=== PATIENT | male | born 1980 | race African-American/Black ===

== ENCOUNTER 2021-06-19 08:55 | Inpatient (IN) | payer OTHER ==
[2021-06-19 12:30] VITALS: BMI 35.0
[2021-06-19] MEDS ORDERED: MENTHOL/PHENOL 1 EACH UD MM PRN (12:35)
[2021-06-19] MEDS ORDERED: METHOCARBAMOL 500 MG TABLET PO PRN (12:35)
[2021-06-19] MEDS ORDERED: ACETAMINOPHEN 325 MG TABLET (FP) PO PRN ×2 (12:35)
[2021-06-19] MEDS ORDERED: MAG HYDROX/AL HYDROX/SIMETH 30 ML UNIT-DOSE CUP PO PRN (12:35)
[2021-06-19] MEDS ORDERED: MAGNESIUM CITRATE 300 ML BOTTLE PO PRN (12:35)
[2021-06-19] MEDS ORDERED: MAGNESIUM HYDROX 2400MG/30ML ORAL SUSPENSION 30 ML CUP PO PRN (12:35)
[2021-06-19] MEDS ORDERED: IBUPROFEN 400 MG TABLET (FP) PO PRN (12:35)
[2021-06-19] MEDS ORDERED: ONDANSETRON *ODT* 4 MG TABLET SL PRN (12:35)
[2021-06-19] MEDS ORDERED: BISMUTH SUBSALICYLATE 262 MG/15 ML BTL PO PRN (12:35)
[2021-06-19] MEDS ORDERED: NICOTINE POLACRILEX 4 MG GUM BUC PRN (12:35)
[2021-06-19] MEDS ORDERED: NICOTINE 10 MG CARTRIDGE (INHALER) IH PRN (12:35)
[2021-06-19] MEDS ORDERED: PRENATAL VITAMINS W/ FOLIC ACID TABLET (FP) PO SCH (12:45)
[2021-06-19] MEDS ORDERED: ALBUTEROL SO4 HFA INHALER IH PRN ×2 (13:06→17:24)
[2021-06-19] MEDS: hydrOXYzine PAMOATE 25 MG CAPSULE (FP) PO PRN (17:21)
[2021-06-19] MEDS ORDERED: THIAMINE HCL 100 MG TABLET (FP) PO SCH (22:00)
[2021-06-19] MEDS ORDERED: MELATONIN 5 MG TABLETS PO SCH (22:00)
[2021-06-19] MEDS ORDERED: methaDONE HCL 10 MG TABLET (FOR DETOX USE ONLY) PO ONE (22:44)
[2021-06-19] MEDS ORDERED: cloNIDine HCL 0.1 MG TABLET PO PRN (22:44)
[2021-06-19] MEDS: P-EPHED 60MG/TRIPROLIDI 2.5MG TABLET PO PRN (22:57)
[2021-06-20] MEDS: hydrOXYzine PAMOATE 25 MG CAPSULE (FP) PO PRN (02:45)
[2021-06-20 05:59] VITALS: BP 136/67; PULSE 65; TEMP 97.8
[2021-06-20] MEDS: P-EPHED 60MG/TRIPROLIDI 2.5MG TABLET PO PRN (07:27)
[2021-06-21] MEDS ORDERED: methaDONE HCL 10 MG TABLET (FOR DETOX USE ONLY) PO ONE (10:00)
[2021-06-23] MEDS ORDERED: methaDONE HCL 10 MG TABLET (FOR DETOX USE ONLY) PO ONE (10:00)
== END 2021-06-20 08:44 | disposition left against medical advice (07) | DRG 770 ==
LOC: YASAS 08:55 → UNDOADMIN 12:52 → Y6N 12:52
PROVIDERS: ADMIT Allergy & Immunology; ATTEND Allergy & Immunology
PROC: HZ2ZZZZ Detoxification Services for Substance Abuse Treatment (ICD-10-PCS; principal; 2021-06-19)
DX: F11.23 Opioid dependence with withdrawal (principal); F17.210 Nicotine dependence, cigarettes, uncomplicated; G47.00 Insomnia, unspecified; J45.909 Unspecified asthma, uncomplicated; E66.9 Obesity, unspecified; Z68.35 Body mass index [BMI] 35.0-35.9, adult; Z91.013 Allergy to seafood
CPT/HCPCS: 93005; 93010; C9803; J0735; U0003; U0005

== ENCOUNTER 2023-05-31 12:16 | Inpatient (IN) | payer OTHER ==
[2023-05-31 13:27] VITALS: BMI 29.8
[2023-05-31] MEDS ORDERED: BENZOCAINE/MENTHOL (CHLORASEPTIC ) LOZENGE MM PRN (16:38)
[2023-05-31] MEDS ORDERED: MAGNESIUM HYDROX 2400MG/30ML ORAL SUSPENSION 30 ML CUP PO PRN (16:38)
[2023-05-31] MEDS ORDERED: guaiFENesin 600 MG TABLET.ER (FP) PO PRN (16:38)
[2023-05-31] MEDS ORDERED: hydrOXYzine PAMOATE 25 MG CAPSULE (FP) PO PRN (16:38)
[2023-05-31] MEDS ORDERED: POLYETHYLENE GLYCOL (HEALTHYLAX) 3350 17 GM PACKET PO PRN (16:38)
[2023-05-31] MEDS ORDERED: BISMUTH SUBSALICYLATE 524 MG/30 ML PO PRN (16:38)
[2023-05-31] MEDS ORDERED: NICOTINE POLACRILEX 2 MG GUM BUC PRN (16:38)
[2023-05-31] MEDS ORDERED: BENZONATATE 200 MG CAPSULE PO PRN (16:38)
[2023-05-31] MEDS ORDERED: ONDANSETRON *ODT* 4 MG TABLET SL PRN (16:38)
[2023-05-31] MEDS ORDERED: IBUPROFEN 400 MG TABLET (FP) PO PRN (16:38)
[2023-05-31] MEDS ORDERED: IBUPROFEN 600 MG TABLET (FP) PO PRN (16:38)
[2023-05-31] MEDS ORDERED: ACETAMINOPHEN 325 MG TABLET (FP) PO PRN (16:38)
[2023-05-31] MEDS ORDERED: LOPERAMIDE HCL 2 MG CAPSULE PO PRN (16:38)
[2023-05-31] MEDS ORDERED: NALOXONE HCL 0.4 MG/ML VIAL IM PRN (16:38)
[2023-05-31] MEDS ORDERED: NALOXONE HCL (KLOXXADO) 8 MG SPRAY NS PRN (16:38)
[2023-05-31] MEDS ORDERED: P-EPHED 60MG/TRIPROLIDI 2.5MG TABLET PO PRN (16:38)
[2023-05-31] MEDS ORDERED: DICYCLOMINE HCL 10 MG CAPSULE PO PRN (16:38)
[2023-05-31] MEDS ORDERED: MAG HYDROX/AL HYDROX/SIMETH 30 ML UNIT-DOSE CUP PO PRN (16:38)
[2023-05-31] MEDS ORDERED: guaiFENesin 200 MG/10 ML 10 ML UNIT-DOSE CUPS PO PRN (16:41)
[2023-05-31] MEDS: METHOCARBAMOL 500 MG TABLET PO PRN (22:08)
[2023-05-31] MEDS: MELATONIN 5 MG TABLETS PO SCH (22:08)
[2023-05-31] MEDS: THIAMINE HCL 100 MG TABLET (FP) PO SCH (23:56)
[2023-06-01] MEDS: ALBUTEROL SO4 HFA INHALER IH PRN (01:43)
[2023-06-01] MEDS: METHOCARBAMOL 500 MG TABLET PO PRN (05:36)
[2023-06-01] MEDS ORDERED: cloNIDine HCL 0.1 MG TABLET PO PRN (06:24)
[2023-06-01] MEDS ORDERED: methaDONE HCL 10 MG TABLET (FOR DETOX USE ONLY) PO ONE ×2 (06:24→10:00)
[2023-06-01 10:09] LABS: HEMATOCRIT 45.3 % (35.4-49); HEMOGLOBIN 15.3 GM/dL (11.7-16.9); MCH 33.7 pg (25.7-33.7); MCHC 33.8 g/dl (32.0-35.9); MEAN CELL VOLUME 99.6 fl (80-96); MEAN PLT VOLUME 8.7 fl (7.5-11.1); PLATELET COUNT 258 10^3/uL (134-434); RBC 4.55 M/mm3 (4.00-5.60); RDW 13.5 % (11.9-15.9); WHITE BLOOD COUNT 5.8 K/mm3 (4.0-10.0)
[2023-06-01] MEDS: PRENATAL VITAMINS W/ FOLIC ACID TABLET (FP) PO SCH (10:12)
[2023-06-01 10:33] LABS: POTASSIUM 4.6 mmol/L (3.5-5.1)
[2023-06-01 10:41] LABS: ALBUMIN 3.5 g/dl (3.4-5.0); BLOOD UREA NITROGEN 10.2 mg/dL (7-18); CALCIUM 8.8 mg/dL (8.5-10.1)
[2023-06-01 10:43] LABS: BILIRUBIN,TOTAL 0.3 mg/dL (0.2-1); CREATININE 0.9 mg/dL (0.55-1.3); TOT PROT 7.3 g/dl (6.4-8.2)
[2023-06-01] MEDS: amLODIPine BESYLATE 10 MG TABLET (FP) PO SCH (14:03)
[2023-06-01] MEDS: diazePAM 5 MG TABLET PO PRN ×2 (17:03→22:09)
[2023-06-01 18:10] VITALS: RESP 18
[2023-06-01] MEDS: THIAMINE HCL 100 MG TABLET (FP) PO SCH (22:08)
[2023-06-01] MEDS: MELATONIN 5 MG TABLETS PO SCH (22:08)
[2023-06-02 09:23] VITALS: BP 142/76; PULSE 76; TEMP 98
[2023-06-02] MEDS: PRENATAL VITAMINS W/ FOLIC ACID TABLET (FP) PO SCH (10:10)
[2023-06-02] MEDS: amLODIPine BESYLATE 10 MG TABLET (FP) PO SCH (10:10)
[2023-06-02] MEDS: ALBUTEROL SO4 HFA INHALER IH PRN (10:12)
[2023-06-02] MEDS ORDERED: diazePAM 5 MG TABLET PO PRN (11:18)
[2023-06-03] MEDS ORDERED: methaDONE HCL 10 MG TABLET (FOR DETOX USE ONLY) PO ONE (10:00)
[2023-06-05] MEDS ORDERED: methaDONE HCL 10 MG TABLET (FOR DETOX USE ONLY) PO ONE (10:00)
== END 2023-06-02 12:12 | disposition left against medical advice (07) | DRG 770 ==
LOC: YASAS 12:16 → Y6N 17:57
PROVIDERS: ADMIT Allergy & Immunology; ATTEND Allergy & Immunology
PROC: HZ2ZZZZ Detoxification Services for Substance Abuse Treatment (ICD-10-PCS; principal; 2023-05-31)
DX: F11.23 Opioid dependence with withdrawal (principal); F17.210 Nicotine dependence, cigarettes, uncomplicated; I10 Essential (primary) hypertension; J45.20 Mild intermittent asthma, uncomplicated; Z28.310 Unvaccinated for COVID-19; Z28.9 Immunization not carried out for unspecified reason
CPT/HCPCS: 36415; 80053; 85027; 86780; 87635; 93005; 93010

== ENCOUNTER 2023-09-17 22:07 | Inpatient (IN) | payer OTHER ==
[2023-09-18] MEDS ORDERED: NALOXONE HCL (KLOXXADO) 8 MG SPRAY NS PRN (03:24)
[2023-09-18] MEDS ORDERED: NALOXONE HCL 0.4 MG/ML VIAL IM PRN (03:24)
[2023-09-18] MEDS ORDERED: BENZOCAINE/MENTHOL (CHLORASEPTIC ) LOZENGE MM PRN (03:24)
[2023-09-18] MEDS ORDERED: DICYCLOMINE HCL 10 MG CAPSULE PO PRN (03:24)
[2023-09-18] MEDS ORDERED: MAGNESIUM HYDROX 2400MG/30ML ORAL SUSPENSION 30 ML CUP PO PRN (03:24)
[2023-09-18] MEDS ORDERED: guaiFENesin 600 MG TABLET.ER (FP) PO PRN (03:24)
[2023-09-18] MEDS ORDERED: LOPERAMIDE HCL 2 MG CAPSULE PO PRN (03:24)
[2023-09-18] MEDS ORDERED: ACETAMINOPHEN 325 MG TABLET (FP) PO PRN (03:24)
[2023-09-18] MEDS ORDERED: MAG HYDROX/AL HYDROX/SIMETH 30 ML UNIT-DOSE CUP PO PRN (03:24)
[2023-09-18] MEDS ORDERED: BENZONATATE 200 MG CAPSULE PO PRN (03:24)
[2023-09-18] MEDS ORDERED: IBUPROFEN 400 MG TABLET (FP) PO PRN (03:24)
[2023-09-18] MEDS ORDERED: ONDANSETRON *ODT* 4 MG TABLET SL PRN (03:24)
[2023-09-18] MEDS ORDERED: POLYETHYLENE GLYCOL (HEALTHYLAX) 3350 17 GM PACKET PO PRN (03:24)
[2023-09-18] MEDS ORDERED: BISMUTH SUBSALICYLATE 524 MG/30 ML PO PRN (03:24)
[2023-09-18] MEDS ORDERED: IBUPROFEN 600 MG TABLET (FP) PO PRN (03:24)
[2023-09-18 03:52] VITALS: BMI 25.8
[2023-09-18] MEDS: PRENATAL VITAMINS W/ FOLIC ACID TABLET (FP) PO SCH (09:17)
[2023-09-18] MEDS ORDERED: methaDONE HCL 10 MG TABLET (FOR DETOX USE ONLY) PO ONE (11:15)
[2023-09-18] MEDS: ALBUTEROL SO4 HFA INHALER IH PRN ×2 (13:31→22:17)
[2023-09-18] MEDS: amLODIPine BESYLATE 10 MG TABLET (FP) PO SCH (13:59)
[2023-09-18] MEDS: THIAMINE HCL 100 MG TABLET (FP) PO SCH (22:17)
[2023-09-18] MEDS: MELATONIN 5 MG TABLETS PO SCH (22:17)
[2023-09-19] MEDS: ALBUTEROL SO4 HFA INHALER IH PRN ×3 (05:24→22:52)
[2023-09-19] MEDS: amLODIPine BESYLATE 10 MG TABLET (FP) PO SCH (09:47)
[2023-09-19] MEDS: PRENATAL VITAMINS W/ FOLIC ACID TABLET (FP) PO SCH (09:47)
[2023-09-19] MEDS: METHOCARBAMOL 500 MG TABLET PO PRN ×2 (09:47→22:52)
[2023-09-19] MEDS: cloNIDine HCL 0.1 MG TABLET PO PRN (17:16)
[2023-09-19 18:01] LABS: HEMOGLOBIN 15.8 GM/dL (11.7-16.9); MCH 34.1 pg (25.7-33.7); MCHC 33.6 g/dl (32.0-35.9); MEAN CELL VOLUME 101.4 fl (80-96); PLATELET COUNT 250 10^3/uL (134-434); RBC 4.64 M/mm3 (4.00-5.60); RDW 13.3 % (11.9-15.9)
[2023-09-19 18:05] LABS: CHLORIDE 101 mmol/L (98-107); SODIUM 137 mmol/L (136-145)
[2023-09-19 18:11] LABS: CALCIUM 9.2 mg/dL (8.5-10.1)
[2023-09-19 18:12] LABS: ALBUMIN 3.5 g/dl (3.4-5.0); ANION GAP 7 mmol/L (4-13); BLOOD UREA NITROGEN 8.3 mg/dL (7-18); CO2 29 mmol/L (21-32); CREATININE 0.9 mg/dL (0.55-1.3); GLUCOSE,RANDOM 157 mg/dL (74-106); SGOT/AST 16 U/L (15-37); SGPT/ALT 20 U/L (13-61)
[2023-09-19 18:14] LABS: TOT PROT 7.5 g/dl (6.4-8.2)
[2023-09-19 18:15] LABS: ALK PHOS 103 U/L (45-117)
[2023-09-19 18:18] LABS: BILIRUBIN,TOTAL 0.9 mg/dL (0.2-1)
[2023-09-19] MEDS: MELATONIN 5 MG TABLETS PO SCH (22:52)
[2023-09-19] MEDS: THIAMINE HCL 100 MG TABLET (FP) PO SCH (22:52)
[2023-09-20] MEDS: hydrOXYzine PAMOATE 25 MG CAPSULE (FP) PO PRN ×2 (08:42→17:28)
[2023-09-20] MEDS ORDERED: methaDONE HCL 10 MG TABLET (FOR DETOX USE ONLY) PO ONE (10:00)
[2023-09-20] MEDS: amLODIPine BESYLATE 10 MG TABLET (FP) PO SCH (10:09)
[2023-09-20] MEDS: ALBUTEROL SO4 HFA INHALER IH PRN ×2 (10:09→17:29)
[2023-09-20] MEDS: PRENATAL VITAMINS W/ FOLIC ACID TABLET (FP) PO SCH (10:10)
[2023-09-20] MEDS: cloNIDine HCL 0.1 MG TABLET PO PRN (17:28)
[2023-09-20] MEDS: METHOCARBAMOL 500 MG TABLET PO PRN (17:28)
[2023-09-20] MEDS: THIAMINE HCL 100 MG TABLET (FP) PO SCH (22:43)
[2023-09-20] MEDS: MELATONIN 5 MG TABLETS PO SCH (22:43)
[2023-09-21] MEDS: METHOCARBAMOL 500 MG TABLET PO PRN (04:46)
[2023-09-21] MEDS: hydrOXYzine PAMOATE 25 MG CAPSULE (FP) PO PRN (04:46)
[2023-09-21 06:18] VITALS: BP 132/75; PULSE 72; RESP 16; TEMP 97.7
[2023-09-21] MEDS: amLODIPine BESYLATE 10 MG TABLET (FP) PO SCH (09:06)
[2023-09-21] MEDS: PRENATAL VITAMINS W/ FOLIC ACID TABLET (FP) PO SCH (09:07)
[2023-09-22] MEDS ORDERED: methaDONE HCL 10 MG TABLET (FOR DETOX USE ONLY) PO ONE (10:00)
== END 2023-09-21 08:48 | disposition left against medical advice (07) | DRG 770 ==
LOC: YASAS 22:07 → Y3N 09-18 03:51
PROVIDERS: ADMIT Allergy & Immunology; ATTEND Surgery
PROC: HZ2ZZZZ Detoxification Services for Substance Abuse Treatment (ICD-10-PCS; principal; 2023-09-18)
DX: F11.23 Opioid dependence with withdrawal (principal); F17.210 Nicotine dependence, cigarettes, uncomplicated; I10 Essential (primary) hypertension; J45.20 Mild intermittent asthma, uncomplicated; Z28.310 Unvaccinated for COVID-19; Z28.9 Immunization not carried out for unspecified reason
CPT/HCPCS: 36415; 80053; 80307; 85027; 86780; 87635; 87811; 93005; 93010